=== PATIENT | male | born 2000 | race African-American/Black ===

== ENCOUNTER 2025-05-21 20:55 | Emergency (ER) | payer OTHER, SELFPAY ==
[2025-05-21 20:57] VITALS: BP 138/79
--- NOTE | 2025-05-21 21:26 | ED.MUSCINJ ---
HPI-Injury
General
Chief Complaint: Musculo-Skeletal Complaint
Source: patient
Exam Limitations: none
Time Seen by Provider: 05/21/25 21:15
Nursing documentation reviewed up to this point in time: agreed with
History of Present Illness-Injury
Is this injury a work related problem?: No
Is pt an associate of [facility]?: No
Initial Injury comments:
Patient to the emergency room with complaint of left fifth finger pain. States he injured his finger while playing basketball. Injury occurred just prior to arrival.
Past History
Past History
ED Past Medical History: None
Review of Systems
Review of Systems
Allergies reviewed?: Yes
All Other Systems: ROS reviewed and negative except as documented in HPI and ROS
Constitutional: Reports no symptoms
EENT: Reports no symptoms
Respiratory: Reports no symptoms
ABD/GI: Reports no symptoms
Musculoskeletal: Reports joint pain (Pain to left fifth finger)
Skin: Reports no symptoms
Neurological: Reports no symptoms
Psychiatric: Reports no symptoms
Musculoskeletal Injury Exam
Musculoskeletal Injury Exam
Left Fifth Finger:
Pain with Movement?: Moderate
Tender to palpation?: Moderate
Soft tissue swelling?: Mild
External deformity and angulation?: None
Joint effusion?: None
Contusion?: Moderate
Hematoma-local bleeding into tissue?: Moderate
Strain- Sprain- Tear (Connective tissue injury)?: Moderate
Crepitus with movement?: No
Joint instability?: No
Malalignment/deformity?: No
Range of motion: Limited
Capillary Refill: normal
Normal distal neurovascular exam?: Yes
Peripheral Pulses: radial (left): 3+
Phy Exam
General Physical Exam
General Presentation: well appearing and mild distress
General age: appears stated age
General Skin: warm
General Habitus: normal
Musculoskeletal Exam
Musculoskeletal Exam: neuro vasc intact and other (Pain and swelling to left fifth finger. no pain to palpation on left hand or wrist. no evidence of tendon injury to left fifth finger)
Skin Exam
Skin Exam: normal color, warm/dry and no rash
Psychiatric Exam
Psychiatric Exam: normal mood/affect
Injury Course
Orders/Labs/Results
Orders:
Orders
05/21/25 20:59
Hand, Left 3 View [CR Hand - Left Min 3 Views] Urgent
Comment:
Reason For Exam: injury
05/21/25 21:35
Ibuprofen [Motrin] 600 mg PO NOW STA
05/21/25 21:39
Ibuprofen [Motrin] 600 mg .ROUTE .STK-MED ONE
05/21/25 22:07
Finger(s)/Thumb 2 View Lt [CR Finger(s)/thumb Min 2 Vw Lt] Urgent
Comment:
Reason For Exam: post reduction 5th finger
05/21/25 22:27
Aluminium Finger Splint Left ONCE
*Radiology
Radiology exam reviewed: radiology read reviewed
*Pulse Oximetry
SaO2: 99
Oxygen Mode of Delivery: Room air
Patient hypoxic: no
*Critical Care Note
Total Time (30-74mins, 75-104mins- exclusive of procedures): Not Applicable
Update Note
Update Note:
Patient to emergency department for complaint of pain and swelling to left fifth finger. Injured finger while playing basketball this evening. X-ray reveals dislocation of the distal phalanx of the left fifth finger. Dislocation was reduced at
bedside without anesthesia. Patient tolerated procedure well. Postreduction x-ray confirms proper placement of the distal phalanx of the left fifth finger. Also reveals 2 tiny bone chips at the base of the middle phalanx of the left fifth finger,
suspect avulsion fracture. He was placed in an aluminum finger splint. He will continue to ice take ibuprofen as needed for any discomfort. He was given the number for orthopedic follow-up. He is currently a student at [employer]. He states he will
follow-up with the hardware trainer in the a.m. He was given instructions on signs and symptoms to return to the emergency department and he is agreeable to plan.
ED Attending Note
-
Portions of this chart may have been created with voice recognition software.� Occasional wrong word or��sound alike� substitutions may have occurred due to the inherent limitations of voice recognition software.
Discharge Plan
Departure
Patient Disposition: Home (Routine Discharge)
Date of Disposition: 05/21/25
Time of Disposition: 22:27
Patient with high blood pressure during this ER visit?: No
Condition: Good
Covid-19: Not Applicable
Discharge Problem:
Dislocated finger
Instructions: Ibuprofen, Finger Dislocation ED, Cold therapy for pain
Referrals:
Sher Parsons MD [Active, Orthopedics] - Call in 1-3 days for appt
UNKNOWN,NO INTERVIEW [Family Provider]
Stand Alone Forms: Back to School
Interventions
Interventions:
*Risk Screen - Suicide Last Done: 05/21/25 22:45
*General Assessment Last Done: 05/21/25 20:57
*Neglect/Abuse Screening Last Done: 05/21/25 22:45
*ED- Fall Risk Assessment Last Done: 05/21/25 22:45
*ED COVID-19 Vaccine History Last Done: 05/21/25 22:45
*ED Influenza Vaccine History Last Done: 05/21/25 22:45
*Nursing Disposition Last Done: 05/21/25 22:45
ED-Musculoskeletal Assessment Last Done: 05/21/25 22:43
Discharge Date and Time
Discharge Date/Time: 05/21/25 22:47
Print Language: HAITIAN
[2025-05-21] MEDS: MOTRIN 600 MG PO (21:39)
== END 2025-05-21 22:47 | disposition home or self-care (01) ==
LOC: EMR 20:55
PROVIDERS: EMERGENCY PHYSICIAN Emergency Medicine
DX: S63.297A Dislocation of distal interphalangeal joint of left little finger, initial encounter (principal); X58.XXXA Exposure to other specified factors, initial encounter; Y93.67 Activity, basketball; Y92.310 Basketball court as the place of occurrence of the external cause
CPT/HCPCS: 99283; 26770; 73130; 73140

== ENCOUNTER 2025-07-23 20:55 | Emergency (ER) | payer OTHER, SELFPAY ==
[2025-07-23 21:01] VITALS: BP 109/83
[2025-07-23] MEDS: MOTRIN 600 MG PO (21:11)
[2025-07-23 21:47] VITALS: BP 124/78; BMI 26.9
--- NOTE | 2025-07-23 22:48 | ED.MUSCINJ ---
HPI-Injury
General
Chief Complaint: Musculo-Skeletal Complaint
Source: patient
Exam Limitations: none
Time Seen by Provider: 07/23/25 21:29
Nursing documentation reviewed up to this point in time: agreed with
History of Present Illness-Injury
Initial Injury comments:
25-year-old male presents here, from [place] in a basketball game at [facility] when he jumped up for a rebound, came down and felt sudden pain in left calf 'like someone kicked me,' limped off the court and has not been able to weight bear since
due to calf pain and his diving coach said it looks like he injured his achilles.
Past History
Past History
ED Past Medical History: None
ED Past Surgical History: Orthopedic
Social History
Tobacco: Non-smoker
Personal: Single
Living: with family
Employment: Student
Review of Systems
Review of Systems
Allergies reviewed?: Yes
All Other Systems: ROS reviewed and negative except as documented in HPI and ROS
Musculoskeletal Injury Exam
Musculoskeletal Injury Exam
Posterior left ankle:
Pain with Movement?: Moderate
Tender to palpation?: Moderate
Soft tissue swelling?: Mild
Strain- Sprain- Tear (Connective tissue injury)?: Other (Positive Feliz test, Achilles area is mushy with no tone. Tender lower calf and achilles area)
Range of motion: Limited
Distal skin color and temperature: normal-warm & good color
Capillary Refill: normal
Normal distal neurovascular exam?: Yes
Phy Exam
Physical Exam
Physical Exam:
PHYSICAL EXAMINATION:
General: no apparent distress, not acutely ill
Neuro: alert and oriented.
Psychiatric: well kept. interactive and cooperative
Musculoskeletal: Moves with ease
Skin: Warm, pink.
Injury Course
Orders/Labs/Results
Orders:
Orders
07/23/25 21:00
CR Ankle - Left Min 3 Views Urgent
Comment:
Reason For Exam: pain
07/23/25 21:08
Ibuprofen [Motrin] 600 mg .ROUTE .STK-MED ONE
07/23/25 21:10
Ibuprofen [Motrin] 600 mg PO NOW STA
07/23/25 22:08
Long Leg Posterior Left-Treatm ONCE
MDM/Problems Addressed
Differential Diagnosis Includes:
Ruptured achilles tendon, fractured ankle
MDM/Problems Addressed:
25-year-old male presents here, from [place] in a basketball game at [facility] [employer] when he jumped up for a rebound, came down and felt sudden pain in left calf 'like someone kicked me,' limped off the court and has not been able to weight bear since
due to calf pain and his diving coach said it looks like he injured his achilles.
Xray left ankle: Initially read by this examiner: No acute bony abnormality noted.
Exam andh history consistent with achilles tendon rupture with +Feliz test and no tone over achilles but with pain
Posterior short leg splint applied, pt has own crutches. He will f/u with orthopedics back home in [place].
*Pulse Oximetry
SaO2: 99
Oxygen Mode of Delivery: Room air
Patient hypoxic: not evaluated
*Critical Care Note
Total Time (30-74mins, 75-104mins- exclusive of procedures): Not Applicable
ED Attending Note
-
Portions of this chart may have been created with voice recognition software.� Occasional wrong word or��sound alike� substitutions may have occurred due to the inherent limitations of voice recognition software.
Discharge Plan
Departure
Patient Disposition: Home (Routine Discharge)
Date of Disposition: 07/23/25
Time of Disposition: 23:00
Patient with high blood pressure during this ER visit?: No
Condition: Good
Discharge Problem:
Achilles tendon rupture
Instructions: Achilles Tendon Rupture (DC), Using Cold for Pain
Referrals:
your orthopedic doctor [Other] - Next open appointment
NONE,* [Family Provider, Internal Medicine]
Activity Restrictions/Additional Instructions:
As we discussed, keep the splint on at all times until further instructed by your orthopedic doctor.
Use the crutches with no weightbearing
Tylenol or ibuprofen as needed for pain call your family doctor in [place] and ask for a referral to an orthopedic doctor then call that doctor and make next available appointment for sometime within the next week.
Interventions
Interventions:
*General Assessment Last Done: 07/23/25 21:01
*Neglect/Abuse Screening Last Done: 07/23/25 21:01
*ED COVID-19 Vaccine History Last Done: 07/23/25 21:47
*ED Influenza Vaccine History Last Done: 07/23/25 21:47
[facility] Fall Risk Assessment Tool Last Done: 07/23/25 21:54
*Risk Screen - Suicide (C-SSRS) Last Done: 07/23/25 21:01
*Nursing Disposition Last Done: 07/23/25 23:35
ED-Musculoskeletal Assessment Last Done: 07/23/25 21:47
Discharge Date and Time
Discharge Date/Time: 07/23/25 23:35
Print Language: JAMAICAN
[2025-07-23 23:35] VITALS: BP 118/75
== END 2025-07-23 23:35 | disposition home or self-care (01) ==
LOC: EMR 20:55
PROVIDERS: EMERGENCY PHYSICIAN Emergency Medicine
DX: S86.012A Strain of left Achilles tendon, initial encounter (principal); X50.1XXA Overexertion from prolonged static or awkward postures, initial encounter; Y93.67 Activity, basketball; Y92.310 Basketball court as the place of occurrence of the external cause; Y99.8 Other external cause status
CPT/HCPCS: 99283; 29515; 73610